=== PATIENT | male | born 1975 | race Caucasian/White ===

== ENCOUNTER 2018-08-07 11:50 | Outpatient (CLI) | payer OTHER | END 2018-08-07 15:00 | disposition home or self-care (01) | LOC: LAB 11:50 | DX: J11.1 Influenza due to unidentified influenza virus with other respiratory manifestations (principal); J06.9 Acute upper respiratory infection, unspecified ==

== ENCOUNTER 2019-04-11 16:45 | Emergency (ER) | payer OTHER ==
[~2019-04-11] VITALS: Ht 170.2 cm; Wt 103.4 kg
[2019-04-11] MEDS ORDERED: CRESTOR5 MG (17:24)
[2019-04-11] MEDS ORDERED: CANDESARTAN 32 MG (17:25)
[2019-04-11] MEDS ORDERED: PROTONIX40 M1 (17:26)
[2019-04-11] MEDS ORDERED: SYNTHROID88 MCG (17:26)
[2019-04-11] MEDS ORDERED: TAMS0.4C PO (19:50)
== END 2019-04-11 19:58 | disposition home or self-care (01) ==
LOC: ER 16:45
DX: N20.0 Calculus of kidney (principal); N21.0 Calculus in bladder

== ENCOUNTER 2020-01-20 07:42 | Outpatient (CLI) | payer OTHER ==
[~2020-01-20 07:42] MED LIST: CANDESARTAN 32 MG; CRESTOR5 MG; PROTONIX40 M1; SYNTHROID88 MCG; TAMS0.4C PO
== END 2020-01-20 07:50 | disposition home or self-care (01) ==
LOC: LAB 07:42
PROVIDERS: ATTEND Internal Medicine Hematology & Oncology
DX: D50.8 Other iron deficiency anemias (principal); I10 Essential (primary) hypertension; D51.1 Vitamin B12 deficiency anemia due to selective vitamin B12 malabsorption with proteinuria; D51.0 Vitamin B12 deficiency anemia due to intrinsic factor deficiency; D63.1 Anemia in chronic kidney disease; E83.52 Hypercalcemia; E72.11 Homocystinuria; D64.89 Other specified anemias; D51.8 Other vitamin B12 deficiency anemias; E78.49 Other hyperlipidemia; E03.8 Other specified hypothyroidism; E88.81 Metabolic syndrome and other insulin resistance; E06.3 Autoimmune thyroiditis; E72.12 Methylenetetrahydrofolate reductase deficiency